=== PATIENT | female | born 1935 | race Two or more races ===

== ENCOUNTER 2017-11-11 16:01 | Inpatient (IN) | payer MEDICARE, BC ==
[~2017-11-11] VITALS: Ht 152.4 cm; Wt 74.4 kg
[2017-11-12] MEDS ORDERED: OXYC-133 PO (18:56)
[2017-11-12] MEDS ORDERED: VENL150C58 PO (18:56)
[2017-11-12] MEDS ORDERED: GABA-534 PO (18:56)
[2017-11-12] MEDS ORDERED: INSU100V27 SQ (18:56)
[2017-11-12] MEDS ORDERED: FLUT1BLS IH (18:56)
[2017-11-12] MEDS ORDERED: INSU100V7 SQ (18:56)
[2017-11-12] MEDS ORDERED: BLOO-668 IN (18:56)
[2017-11-12] MEDS ORDERED: IPRA3AMP23 IH (18:56)
[2017-11-12] MEDS ORDERED: TEMA15CA PO (18:56)
[2017-11-12] MEDS ORDERED: LEVO50TA8 PO (18:56)
[2017-11-12] MEDS ORDERED: PROP40TA7 PO (18:56)
[2017-11-12] MEDS ORDERED: DILT-32 PO (18:56)
[2017-11-12] MEDS ORDERED: LOSA1TAB36 PO (18:56)
[2017-11-12] MEDS ORDERED: THIA100T13 PO (18:56)
[2017-11-12] MEDS ORDERED: CARI350T PO (18:56)
--- NOTE | 2017-11-12 18:59 | NUR ---
PT. ARRIVED IN THE UNIT VIA A WHEELCHAIR AND WHEELED BY [facility] ST[facility]FF [facility]. PT. CAME FROM [facility] ON [address] ESCOBEDO MADE AWARE OF THE ADMISSION AND WITH ORDERS. CONTRABAND DONE AND WILL ENDORSE FOR THE COMPLETION OF THE ADMISSION.
[2017-11-12] MEDS ORDERED: MAGNESIUM HYDROXIDE 30 ML UDC PO PRN (19:00)
[2017-11-12] MEDS ORDERED: MAG HYDROX/AL HYDROX/SIMETH 30 ML UDC PO PRN (19:00)
[2017-11-12 20:00] VITALS: BP 121/64
--- NOTE | 2017-11-12 22:00 | NUR ---
ADMITTED AN 82 Y/O FEMALE FROM [facility], ON 5150 HOLD DTS, PER HOLD PATIENT OD OF PAIN PILLS AND WINE. PATIENT ADMITTING DX. OF DEPRESSION AND MEDICAL DX. HYPERTENSION, DM2, ASTHMA, LUMBAR SPINAL STENOSIS, LOW BACK PAIN. UPON FACE TO FACE EVALUATION, PATIENT APPEARED ALERT AND ORIENTED X 4, CALM, COOPERATIVE, PER PATIENT SHE WAS SUICIDAL BECAUSE SHE WAS VERY UPSET AT HER DAUGHTER AND SHE WAS NOT ABLE TO TAKE HER MEDICATION FOR DEPRESSION THAT CAUSES HER TO BE VERY DEPRESSED. PATIENT DENIES SI/HI/AU/VH. PATIENT HEAD TO TOE ASSESSMENT DONE. PICTURE DONE. NO SOB, NO ACUTE DISTRESS, BREATHING EVEN AND UNLABORED, C/O GENERAL BODY PAIN 3, TYLENOL GIVEN ORDERED AND EFFECTIVE POST 1 HOUR. PATIENT SIGNED PAPER WORKS. PATIENT REQUESTED AN ORDER OF CLARITIN MEDS PRN FOR ITCHING. NOTIFIED BRANCH ADMINISTRATOR MARCELA YOON TO RECONCILE MEDICATION AND TO SIGN THE DNR STATUS. NOTIFIED DAUGHTER OF THE ADMISSION OF THE PATIENT. WILL CONTINUE TO MONITOR [id number] FOR SAFETY
[2017-11-12] MEDS: ACETAMINOPHEN 325 MG TABLET PO PRN (22:08)
[2017-11-12] MEDS: TEMAZEPAM 7.5 MG CAPSULE PO PRN (22:09)
[2017-11-12] MEDS ORDERED: IPRATROPIUM NEB FS 0.5 MG/2.5 ML AMPUL.NEB NEB PRN (23:30)
[2017-11-12] MEDS ORDERED: ALBUTEROL FS 2.5 MG/3 ML VIAL.NEB NEB PRN (23:30)
[2017-11-12] MEDS: clonazePAM 0.5 MG TABLET PO PRN (23:42)
[2017-11-13 00:49] VITALS: BP 121/64
[2017-11-13] MEDS: BLOOD SUGAR DIAGNOSTIC 1 EACH STRIP IN SCH ×4 (07:57→21:41)
[2017-11-13] MEDS: LEVOTHYROXINE SODIUM 50 MCG TABLET PO SCH (07:58)
[2017-11-13 08:00] VITALS: BP 111/74
[2017-11-13 08:07] LABS: ALANINE AMINOTRANSFERASE 46 U/L (12-78); ALBUMIN 3.9 g/dL (3.4-5.0); ALKALINE PHOSPHATASE 78 U/L (46-116); ASPARTATE AMINOTRANSFERASE 32 U/L (15-37); BILIRUBIN,TOTAL 0.5 mg/dL (0.2-1.0); CALCIUM, SERUM 9.1 mg/dL (8.5-10.1); CARBON DIOXIDE 29 mmol/L (21-32); CHLORIDE 98 mmol/L (98-107); CHOLESTEROL 209 mg/dL (<200); CREATININE 1.2 mg/dL (0.6-1.3); GLUCOSE 125 mg/dL (74-106); HDL CHOLESTEROL 31 mg/dL (40-60); LDL 145 mg/dL (0-99); POTASSIUM 3.7 mmol/L (3.5-5.1); SODIUM SERUM 136 mmol/L (136-145); TOTAL PROTEIN, SERUM 8.1 g/dL (6.4-8.2); TRIGLYCERIDES 206 mg/dL (30-150); UREA NITROGEN, BLOOD 40 mg/dL (7-18)
[2017-11-13] MEDS ORDERED: LORATADINE 10 MG TABLET PO SCH (09:00)
[2017-11-13] MEDS: GABAPENTIN 300 MG CAPSULE PO SCH ×4 (09:03→20:56)
[2017-11-13] MEDS: THIAMINE HCL 100 MG TABLET PO SCH (09:03)
[2017-11-13] MEDS: DILTIAZEM HCL CD 120 MG PO SCH (09:03)
[2017-11-13] MEDS: FLUTICASONE/VILANTEROL 1 EACH BLST.W.DEV IH SCH (09:04)
[2017-11-13] MEDS: LOSARTAN/HCTZ 50-12.5MG/ 1 EA TABLET PO SCH (09:04)
[2017-11-13] MEDS: INSULIN GLARGINE, 100 UNIT/ML CARTRIDGE SQ SCH (09:05)
[2017-11-13] MEDS: HYDROCODONE/APAP 10/325MG 1 EA TABLET PO PRN (09:11)
--- NOTE | 2017-11-13 09:11 | NUR ---
GPS RN NOTE: PATIENT COMPLAINING OF LOWER BACK PAIN NORCO 10/325 MG PO PRN GIVEN PER ORDER WILL CONTINUE MONITORING.
[2017-11-13] MEDS: VENLAFAXINE XR 150 MG CAP.SR.24H PO SCH (13:45)
[2017-11-13 16:00] VITALS: BP 108/64
--- NOTE | 2017-11-13 19:39 | NUR ---
GPS/RN OPENING NOTES PATIENT AWAKE, ALERT X2,CAN RESPOND AND FOLLOW SIMPLE COMMANDS, AMBULATORY AND VERBALIZE NEEDS, SKIN WARM TO TOUCH, MONITORING FOR ANY S/S OF CHANGES, RECEIVED REPORT FROM AM RN FOR YESSICA. BED IN LOCK POSITION. OFFERED AND PROVIDE NEEDS.
[2017-11-13 20:00] VITALS: BP 107/61
[2017-11-13] MEDS: PROPRANOLOL HCL 40 MG TABLET PO SCH (21:03)
[2017-11-13] MEDS: TEMAZEPAM 7.5 MG CAPSULE PO PRN (21:06)
[2017-11-14] MEDS: HYDROCODONE/APAP 10/325MG 1 EA TABLET PO PRN ×2 (03:55→21:22)
--- NOTE | 2017-11-14 03:55 | NUR ---
gps/rn notes patient reportd
--- NOTE | 2017-11-14 03:55 | NUR ---
gps/rn notes patient reported pain 8/10 in lower back, Gibbon 10-325 mg po sdminidtered po, will monitor pain relief
[2017-11-14 08:00] VITALS: BP 98/59
[2017-11-14] MEDS: THIAMINE HCL 100 MG TABLET PO SCH (08:44)
[2017-11-14] MEDS: LEVOTHYROXINE SODIUM 50 MCG TABLET PO SCH (08:44)
[2017-11-14] MEDS: BLOOD SUGAR DIAGNOSTIC 1 EACH STRIP IN SCH ×4 (08:44→21:22)
[2017-11-14] MEDS: GABAPENTIN 300 MG CAPSULE PO SCH ×4 (08:44→21:22)
[2017-11-14] MEDS: FLUTICASONE/VILANTEROL 1 EACH BLST.W.DEV IH SCH (08:45)
[2017-11-14] MEDS: DILTIAZEM HCL CD 120 MG PO SCH (08:45)
[2017-11-14] MEDS: VENLAFAXINE XR 150 MG CAP.SR.24H PO SCH (08:45)
[2017-11-14] MEDS: LORATADINE 10 MG TABLET PO PRN (08:45)
[2017-11-14] MEDS: LOSARTAN/HCTZ 50-12.5MG/ 1 EA TABLET PO SCH (08:46)
[2017-11-14] MEDS: INSULIN GLARGINE, 100 UNIT/ML CARTRIDGE SQ SCH (08:52)
[2017-11-14] MEDS: ACETAMINOPHEN 325 MG TABLET PO PRN (14:51)
[2017-11-14 16:00] VITALS: BP 151/60
--- NOTE | 2017-11-14 19:45 | NUR ---
GPS RN INITIAL NOTE PT AWAKE AND IN DINING AREA. A/O X4 AND ABLE TO VERBALIZE NEEDS. NO ACUTE DISTRESS NOTED. NO C/O PAIN OR DISCOMFORT NOTED. CALM AND COOPERATIVE. WILL CONTINUE TO MONITOR.
[2017-11-14 19:59] VITALS: BP 130/72
[2017-11-14] MEDS: PROPRANOLOL HCL 40 MG TABLET PO SCH (21:23)
[2017-11-14] MEDS: TEMAZEPAM 7.5 MG CAPSULE PO PRN (22:02)
[2017-11-14] MEDS: clonazePAM 0.5 MG TABLET PO PRN (23:29)
[2017-11-15] MEDS: BLOOD SUGAR DIAGNOSTIC 1 EACH STRIP IN SCH ×4 (07:36→21:51)
[2017-11-15 08:00] VITALS: BP 127/67
[2017-11-15] MEDS: GABAPENTIN 300 MG CAPSULE PO SCH ×4 (08:27→21:45)
[2017-11-15] MEDS: VENLAFAXINE XR 150 MG CAP.SR.24H PO SCH (08:27)
[2017-11-15] MEDS: THIAMINE HCL 100 MG TABLET PO SCH (08:27)
[2017-11-15] MEDS: LEVOTHYROXINE SODIUM 50 MCG TABLET PO SCH (08:27)
[2017-11-15] MEDS: FLUTICASONE/VILANTEROL 1 EACH BLST.W.DEV IH SCH (08:45)
[2017-11-15] MEDS: DILTIAZEM HCL CD 120 MG PO SCH (08:46)
[2017-11-15] MEDS: LOSARTAN/HCTZ 50-12.5MG/ 1 EA TABLET PO SCH (08:47)
[2017-11-15] MEDS: INSULIN GLARGINE, 100 UNIT/ML CARTRIDGE SQ SCH (08:49)
[2017-11-15] MEDS: LORATADINE 10 MG TABLET PO PRN (09:06)
[2017-11-15] MEDS: HYDROCODONE/APAP 10/325MG 1 EA TABLET PO PRN ×3 (09:07→21:56)
--- NOTE | 2017-11-15 14:33 | NUR ---
INITIAL DISCHARGE PLAN: PT WISHES TO RETURN HOME TO [address] [place] [address] [id number] [facility] [id number] .HOWEVER, PTS DAUGHTER FRANCISCO [phone] WISHES FOR PT TO BE DISCHARGED TO A RESIDENTIAL SUBSTANCE ABUSE TREATMENT PROGRAM. SW WILL HELP FORM A SAFE AND PROPER DISCHARGE IN COLLABORATION WITH .
[2017-11-15 16:00] VITALS: BP 114/53
--- NOTE | 2017-11-15 16:51 | NUR ---
gps/rn notes patient reported pain 8/10 in lower back, Cost 10-325 mg po given per order, will continue monitoring.
[2017-11-15 19:22] LABS: APPEARANCE,URINE CLEAR (CLEAR); BILIRUBIN,URINE NEGATIVE (NEGATIVE); BLOOD, URINE NEGATIVE Ery/uL (NEGATIVE); COLOR,URINE YELLOW (YELLOW); KETONES,URINE NEGATIVE (NEGATIVE); LEUKOCYTE ESTERASE ,URINE NEGATIVE (NEGATIVE); NITRITE, URINE NEGATIVE (NEGATIVE); PH,URINE 5.5 (5.0-8.0); PROTEIN,URINE NEGATIVE (NEGATIVE); UGLUCOSE NEGATIVE (NEGATIVE); UROBILINOGEN,URINE 0.2 EU/dL (0.2)
[2017-11-15 20:54] VITALS: BP 100/47
[2017-11-15] MEDS: clonazePAM 0.5 MG TABLET PO PRN (21:45)
[2017-11-15] MEDS: PROPRANOLOL HCL 40 MG TABLET PO SCH (21:45)
--- NOTE | 2017-11-15 21:50 | NUR ---
GPS RN NOTE NOTED PT IS ANXIOUS, KLONOPIN 0.5 MG PO GIVEN FOR ANXIETY.
--- NOTE | 2017-11-15 21:55 | NUR ---
GPS RN NOTE PT C/O LOWER BACK PAIN 09/05, NORCO 1 TAB PO GIVEN FOR PAIN. CONTINUE TO MONITOR HER.
--- NOTE | 2017-11-15 22:55 | NUR ---
GPS RN NOTE ANXIETY AND PAIN SUBSIDED 04/07. CONTINUE TO MONITOR HER.
[2017-11-16] MEDS: TEMAZEPAM 7.5 MG CAPSULE PO PRN ×2 (00:28→21:23)
[2017-11-16] MEDS: LORATADINE 10 MG TABLET PO PRN (00:28)
--- NOTE | 2017-11-16 00:28 | NUR ---
GPS RN NOTE PT WOKE UP AND C/O INSOMNIA AND ALSO ASKING FOR CLARITIN FOR ALLERGY. RESTORIL 7.5 MG PO FOR SLEEP, AND CLARITIN 10 MG FOR ALLERGY PO GIVEN. CONTINUE TO MONITOR HER.
--- NOTE | 2017-11-16 01:28 | NUR ---
GPS RN NOTE PT FALL ASLEEP, AROUSABLE. ALSO ALLERGY SUBSIDED.
[2017-11-16 08:00] VITALS: BP 111/64
[2017-11-16] MEDS: LEVOTHYROXINE SODIUM 50 MCG TABLET PO SCH (08:22)
[2017-11-16] MEDS: DILTIAZEM HCL CD 120 MG PO SCH (08:22)
[2017-11-16] MEDS: BLOOD SUGAR DIAGNOSTIC 1 EACH STRIP IN SCH ×4 (08:22→20:29)
[2017-11-16] MEDS: GABAPENTIN 300 MG CAPSULE PO SCH ×4 (08:23→21:02)
[2017-11-16] MEDS: LOSARTAN/HCTZ 50-12.5MG/ 1 EA TABLET PO SCH (08:23)
[2017-11-16] MEDS: VENLAFAXINE XR 150 MG CAP.SR.24H PO SCH (08:24)
[2017-11-16] MEDS: FLUTICASONE/VILANTEROL 1 EACH BLST.W.DEV IH SCH (08:27)
[2017-11-16] MEDS: HYDROCODONE/APAP 10/325MG 1 EA TABLET PO PRN ×2 (09:07→21:01)
[2017-11-16] MEDS: THIAMINE HCL 100 MG TABLET PO SCH (09:07)
[2017-11-16] MEDS: INSULIN GLARGINE, 100 UNIT/ML CARTRIDGE SQ SCH (09:08)
--- NOTE | 2017-11-16 09:15 | NUR ---
MERE faxed referral to Naye development coordinator at [facility] Address: [address] [place] [address] for review.
[2017-11-16 16:00] VITALS: BP 105/57
--- NOTE | 2017-11-16 19:30 | NUR ---
GPS RN NOTES RECEIVED PT ON BED, A/OX3 . NO RESPIRATORY DISTRESS NOTED. BREATHING EVEN AND UNLABORED. NO COMPLAINTS OF PAIN. BED IN LOW AND LOCKED POSITION. BED ALARM ON. WILL CONTINUE TO MONITOR PT [id number] CHECKED BEHAVIOR AND SAFETY.
[2017-11-16 20:34] VITALS: BP 107/55
[2017-11-16] MEDS: clonazePAM 0.5 MG TABLET PO PRN (21:01)
[2017-11-16] MEDS: PROPRANOLOL HCL 40 MG TABLET PO SCH (21:03)
--- NOTE | 2017-11-16 22:00 | NUR ---
GPS RN NOTES PT REFUSED ACCUCHECK. PER PATIENT SHE WANTS IT ONLY IN AM. EXPLAINED RISK AND BENEFITS. PT STILL REFUSED.
--- NOTE | 2017-11-16 22:09 | NUR ---
GPS RN NOTES PATIENT O2 SATURATION 96% UPON RECHECKING
[2017-11-17] MEDS: BLOOD SUGAR DIAGNOSTIC 1 EACH STRIP IN SCH (07:52)
[2017-11-17 08:00] VITALS: BP 135/68
[2017-11-17] MEDS: LEVOTHYROXINE SODIUM 50 MCG TABLET PO SCH (08:00)
[2017-11-17 08:01] VITALS: BP 135/68
[2017-11-17] MEDS: LOSARTAN/HCTZ 50-12.5MG/ 1 EA TABLET PO SCH (08:01)
[2017-11-17] MEDS: GABAPENTIN 300 MG CAPSULE PO SCH (08:01)
[2017-11-17] MEDS: THIAMINE HCL 100 MG TABLET PO SCH (08:01)
[2017-11-17] MEDS: FLUTICASONE/VILANTEROL 1 EACH BLST.W.DEV IH SCH (08:01)
[2017-11-17] MEDS: DILTIAZEM HCL CD 120 MG PO SCH (08:01)
[2017-11-17] MEDS: VENLAFAXINE XR 150 MG CAP.SR.24H PO SCH (08:02)
[2017-11-17] MEDS: INSULIN GLARGINE, 100 UNIT/ML CARTRIDGE SQ SCH (08:04)
[2017-11-17] MEDS: ACETAMINOPHEN 325 MG TABLET PO PRN (09:27)
--- NOTE | 2017-11-17 09:27 | NUR ---
NURSING NOTE PT C/O LOWER BACK PAIN, 6/10 PAIN, REQUESTING PAIN MEDICATION, TYLENOL 650MG PO ADMINISTERED. WILL CONTINUE TO MONITOR.
--- NOTE | 2017-11-17 11:30 | NUR ---
PT DISCHARGED TODAY AT 1130 VIA SO TAXI TO [facility] [id number] [place] [address]. PT WAS ESCORTED OUT OF THE UNIT ON A WHEELCHAIR BY ONE STAFF TO THE TAXI. TAXI VOUCHER WAS GIVEN TO SWITCH OPERATOR TO TAKE TO FLASH DESIGNER. PT IS A&OX3, CALM, COOPERATIVE, PLEASANT, DENIES SI/HI AT THE TIME OF DISCHARGE, VS STABLE, SKIN INTACT. PT HAS SIGNED ALL PAPERWORK AND ALL BELONGINGS WERE RETURNED TO PT. PT WAS GIVEN PRESCRIPTIONS AND ALL PAPERWORK TO TAKE WITH HER UPON DISCHARGE. CALLED [facility] AT 0830 FOR REPORT. WAS UNABLE TO GET IN CONTACT WITH RN AND LEFT FOR JOSEFA [phone] TO CALL BACK FOR REPORT. DISCHARGE ORDERS WERE OBTAINED FROM DR. ESCOBEDO AND DR. JEFFRIES. PT IS MEDICALLY STABLE TO [place] PER DR. JEFFRIES. PRESCRIPTIONS WERE OBTAINED FROM BOTH DOCTORS.
--- NOTE | 2017-11-17 12:01 | NUR ---
DISCHARGE NOTE: Pt was discharged at 1100 to [facility] Address: [address] [facility] [phone] via [facility] taxi. Pt daughter La Nena [phone] was notified and agreed with discharge. Pts mood was pleasant with congruent affect. Pt denied homicidal/suicidal ideations and denied visual/auditory hallucinations. Pt will be under the medical care of [facility]ender: Dr. Mesfin Villela [address] [address] [phone] and Psychiatrist: Dr. Joshua Roldan [address] [place] [address] [phone]. The multidisciplinary exitcare form was done, printed, signed, and given to the patient.
--- NOTE | 2017-11-18 08:15 | NUR ---
MERE received a voicemail from pts daughter La Nena [phone] informing SW that [facility] gave pts bed away and they called her to ask her to pick pt up.
--- NOTE | 2017-11-18 08:16 | NUR ---
MERE contacted Naye community health program coordinator at [facility] Address: [address] [place] [address] to inquire on pts admission status. Naye explained to MERE that pt declined treatment even after they attempted to convince pt to accept treatment. Naye stated that she contacted pts daughters La Nena and Get and explained situation to both of them and they both stated they would not go pick pt up. Naye informed MERE that pt was transported home via a taxi that they provided to her. Naye also mentioned that pt refused to stop taking opioids and that she only wanted alcohol treatment which is not how the treatment works.
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
--- NOTE | 2017-11-18 09:31 | NUR ---
SW contacted pts daughter La Nena [phone] to provide her with [facility] [phone] phone number pt was also on the line and stated to SW that [facility] had treated her bad pt also stated that she did not want to go on Methadone. SW asked pts daughter to speak to her in private and SW informed pts daughter that during substance abuse intervention pt was in denial regarding her opioid and alcohol abuse SW provided pts daughter with responses given to SW by pt regarding her addiction. Pts daughter was surprised and was not aware that pt was in denial regarding her substance abuse. Pts daughter thanked SW and SW recommended that pt be placed in an assisted living facility where pain medications can be controlled, pts daughter agreed and stated she would start looking into placement for pt.
== END 2017-11-17 11:30 | DRG 885 ==
LOC: GPS 11-12 18:32
PROVIDERS: ADMIT Psychiatry & Neurology Psychiatry; ATTEND Hospitalist
DX: F33.2 Major depressive disorder, recurrent severe without psychotic features (principal); N18.3 Chronic kidney disease, stage 3 (moderate); F23 Brief psychotic disorder; R45.851 Suicidal ideations; E11.22 Type 2 diabetes mellitus with diabetic chronic kidney disease; E11.40 Type 2 diabetes mellitus with diabetic neuropathy, unspecified; I12.9 Hypertensive chronic kidney disease with stage 1 through stage 4 chronic kidney disease, or unspecified chronic kidney disease; M19.90 Unspecified osteoarthritis, unspecified site; E03.9 Hypothyroidism, unspecified; G47.33 Obstructive sleep apnea (adult) (pediatric); G89.29 Other chronic pain; J45.909 Unspecified asthma, uncomplicated; N32.81 Overactive bladder; R13.10 Dysphagia, unspecified; Z87.891 Personal history of nicotine dependence; Z90.49 Acquired absence of other specified parts of digestive tract; K76.0 Fatty (change of) liver, not elsewhere classified; R26.81 Unsteadiness on feet; F10.20 Alcohol dependence, uncomplicated; Y90.9 Presence of alcohol in blood, level not specified
CPT/HCPCS: 36415; 80048-TC; 80053-TC; 80061-TC; 81000-TC; 82962-TC; 87081-TC; J1815